=== PATIENT | female | born 1975 | race Caucasian/White ===

== ENCOUNTER 2017-03-05 10:02 | Emergency (ER) | payer MEDICAID ==
[2017-03-05] VITALS (9 sets, daily range): BP systolic 78–92; BP diastolic 48–55; PULSE 64–78; RESP 16–20; TEMP 97.5; O2SAT 98–100
[~2017-03-05] VITALS: Ht 160 cm; Wt 54.5 kg
[2017-03-05 10:23] LABS: AUTOMATED NEUTROPHIL # 2.7 TH/MM3 (1.8-7.7); BASOPHIL % 0.6 % (0.0-2.0); EOSINOPHIL # 0.1 TH/MM3 (0-0.4); EOSINOPHIL % 1.5 % (0.0-4.0); HEMATOCRIT 34.6 % (35.0-46.0); HEMO FLAGS DIFF FINAL; LYMPH % 28.7 % (9.0-44.0); LYMPHOCYTE # 1.2 TH/MM3 (1.0-4.8); MEAN CELL VOLUME 89.1 FL (80.0-100.0); MEAN CORPUSCULAR HEMOGLOBIN 29.5 PG (27.0-34.0); MEAN CORPUSCULAR HGB CONC 33.1 % (32.0-36.0); MONO % 6.8 % (0.0-8.0); NEUT % 62.4 % (16.0-70.0); PLATELET COUNT 170 TH/MM3 (150-450); RED BLOOD COUNT 3.89 MIL/MM3 (4.00-5.30); RED CELL DISTRIBUTION WIDTH 12.7 % (11.6-17.2); WHITE BLOOD COUNT 4.3 TH/MM3 (4.0-11.0)
[2017-03-05 10:33] LABS: CHLORIDE 108 MEQ/L (98-107); SODIUM (NA) 143 MEQ/L (136-145)
[2017-03-05 10:38] LABS: ANION GAP 7 MEQ/L (5-15); BICARBONATE 28.4 MEQ/L (21.0-32.0); BLOOD UREA NITROGEN 11 MG/DL (7-18)
[2017-03-05 10:41] LABS: ALT (GPT) 18 U/L (10-53); AST (GOT) 13 U/L (15-37); GLOMERULAR FILTRATION RATE 113 ML/MIN (>89)
[2017-03-05 10:42] LABS: TOTAL BILIRUBIN ADULT 0.3 MG/DL (0.2-1.0)
[2017-03-05 10:44] LABS: ALKALINE PHOSPHATASE 34 U/L (45-117)
[2017-03-05] MEDS ORDERED: SODIUM CHLOR 0.9% 1000 ML INJ 1,000 ML IV ONE ×3 (10:45→12:45)
[2017-03-05 11:14] LABS: BLOOD, URINE NEG (NEG); GLUCOSE,URINE NEG (NEG); KETONE, URINE NEG (NEG); NITRITE,URINE NEG (NEG); PH, URINE 6.5 (5.0-8.5)
[2017-03-05 11:22] LABS: BARBITURATES, URINE NEG (NEG)
[2017-03-05 11:23] LABS: AMPHETAMINE, URINE NEG (NEG); COCAINE, URINE NEG (NEG)
[2017-03-05 11:28] LABS: METHOD OF COLLECTION CLEAN CATCH; RBC, URINE 0-3 /hpf (0-3); URINE COLOR YELLOW (YELLW/STRAW)
[2017-03-05 11:29] LABS: BACTERIA, URINE MOD /hpf; COMMENT (UR) CULTURE INDICATED; CULTURE IF INDICATED CULTURE INDICATED; SQUAMOUS EPITHELIAL CELL URINE > 8 /hpf (0-5)
--- NOTE | 2017-03-05 11:59 | PD ---
HPI Chief Complaint: Syncope/Near-Syncope Time Seen by Provider: 10:32 Travel History International Travel<30 days: No Contact w/Intl Traveler<30days: No Traveled to known affect area: No History of Present Illness HPI Patient is a 41-year-old female with no medical history, presents to emergency room after a syncopal episode. Reports that she was having a bowel movement today, reports that she began to feel lightheaded and dizzy and her children had her mother go to the bathroom. Reports that when her mother arrived in the bathroom and helped her to the floor. Reports that she had a near syncopal episode. Reports that she did become diaphoretic when this happened. Reports that she has had similar symptoms in the past, reports that she recently moved from [place] to [place] and knows that she is dehydrated as she is having a hard time keeping up with her fluid intake. Patient denies any chest pain or shortness of breath, denies any abdominal pain. Denies any headache or dizziness at this time. Patient with no fevers or chills. Patient does admit to having similar symptoms 4 years ago which was due to vasovagal syncope. PFSH Past Medical History Medical other: Yes (hx of synope approx 4 yrs ago) Tetanus Vaccination: < 5 Years Influenza Vaccination: No ?: Not LMP: 02/15/17 Past Surgical History Section: Yes (x1) Other Surgery: Yes (breast augmentation) Social History Alcohol Use: No Tobacco Use: No (quit smoked cigs for 2-3 years in teen years) Substance Use: No Allergies-Medications (Allergen,Severity, Reaction): Coded Allergies: Bactrim (Verified Allergy, Intermediate, hives, 03/05/17) Penicillin (Verified Allergy, Intermediate, hives, 03/05/17) Review of Systems General / Constitutional: No: Fever Eyes: No: Visual changes HENT: No: Headaches Cardiovascular: Positive: Diaphoresis, Syncope, No: Chest Pain or Discomfort Respiratory: No: Shortness of Breath Gastrointestinal: No: Abdominal Pain Genitourinary: No: Dysuria Musculoskeletal: No: Pain Skin: No Rash Neurologic: No: Weakness Psychiatric: No: Depression Endocrine: No: Polydipsia Hematologic/Lymphatic: No: Easy Bruising Physical Exam Narrative GENERAL: Mild distress SKIN: Focused skin assessment warm/dry. HEAD: Atraumatic. Normocephalic. EYES: Pupils equal and round. No scleral icterus. No injection or drainage. ENT: No nasal bleeding or discharge. Mucous membranes pink and moist. NECK: Trachea midline. No JVD. CARDIOVASCULAR: Regular rate and rhythm. No murmur appreciated. RESPIRATORY: No accessory muscle use. Clear to auscultation. Breath sounds equal bilaterally. GASTROINTESTINAL: Abdomen soft, non-tender, nondistended. Hepatic and splenic margins not palpable. MUSCULOSKELETAL: No obvious deformities. No clubbing. No cyanosis. No edema. NEUROLOGICAL: Awake and alert. No obvious cranial nerve deficits. Motor grossly within normal limits. Normal speech. PSYCHIATRIC: Appropriate mood and affect; insight and judgment normal. Data Data Last Documented VS Vital Signs Date Time Temp Pulse Resp B/P Pulse Ox O2 Delivery O2 Flow Rate FiO2 03/05/17 14:51 78 20 90/55 98 03/05/17 13:57 Room Air 03/05/17 10:23 97.5 Orders Electrocardiogram (03/05/17 10:06) Complete Blood Count With Diff (03/05/17 10:06) Comprehensive Metabolic Panel (03/05/17 10:06) Iv Access Insert/Monitor (03/05/17 10:06) Ed Urine Pregnancytest Poc (03/05/17 10:06) Orthostatic Vital Signs (03/05/17 10:14) Urinalysis - C+S If Indicated (03/05/17 10:14) Drug Screen, Random Urine (03/05/17 10:14) Electrocardiogram (03/05/17 ) Sodium Chlor 0.9% 1000 Ml Inj (Ns 1000 M (03/05/17 10:45) Sodium Chlor 0.9% 1000 Ml Inj (Ns 1000 M (03/05/17 10:45) Urine Culture (03/05/17 11:00) Nitrofurantoin Monohyd Macrocr (Macrobid (03/05/17 12:00) Sodium Chlor 0.9% 1000 Ml Inj (Ns 1000 M (03/05/17 12:45) Ciprofloxacin Liq (Cipro Liq) (03/05/17 12:45) Ct Brain W/O Iv Contrast(Rout) (03/05/17 14:02) Labs Laboratory Tests Test 03/05/17 03/05/17 10:15 11:00 White Blood Count 4.3 TH/MM3 Red Blood Count 3.89 MIL/MM3 Hemoglobin 11.5 GM/DL Hematocrit 34.6 % Mean Corpuscular Volume 89.1 FL Mean Corpuscular Hemoglobin 29.5 PG Mean Corpuscular Hemoglobin 33.1 % Concent Red Cell Distribution Width 12.7 % Platelet Count 170 TH/MM3 Mean Platelet Volume 9.2 FL Neutrophils (%) (Auto) 62.4 % Lymphocytes (%) (Auto) 28.7 % Monocytes (%) (Auto) 6.8 % Eosinophils (%) (Auto) 1.5 % Basophils (%) (Auto) 0.6 % Neutrophils # (Auto) 2.7 TH/MM3 Lymphocytes # (Auto) 1.2 TH/MM3 Monocytes # (Auto) 0.3 TH/MM3 Eosinophils # (Auto) 0.1 TH/MM3 Basophils # (Auto) 0.0 TH/MM3 CBC Comment DIFF FINAL Differential Comment Sodium Level 143 MEQ/L Potassium Level 4.0 MEQ/L Chloride Level 108 MEQ/L Carbon Dioxide Level 28.4 MEQ/L Anion Gap 7 MEQ/L Blood Urea Nitrogen 11 MG/DL Creatinine 0.59 MG/DL Estimat Glomerular Filtration 113 ML/MIN Rate Random Glucose 100 MG/DL Calcium Level 7.7 MG/DL Total Bilirubin 0.3 MG/DL Aspartate Amino Transf 13 U/L (AST/SGOT) Alanine Aminotransferase 18 U/L (ALT/SGPT) Alkaline Phosphatase 34 U/L Total Protein 6.2 GM/DL Albumin 3.3 GM/DL Urine Collection Type CLEAN CATCH Urine Color YELLOW Urine Turbidity CLEAR Urine pH 6.5 Urine Specific [place] 1.022 Urine Protein TRACE mg/dL Urine Glucose (UA) NEG mg/dL Urine Ketones NEG mg/dL Urine Occult Blood NEG Urine Nitrite NEG Urine Bilirubin NEG Urine Leukocyte Esterase NEG Urine RBC 0-3 /hpf Urine WBC 3-5 /hpf Urine Squamous Epithelial > 8 /hpf Cells Urine Bacteria MOD /hpf Microscopic Urinalysis Comment CULTURE INDICATED Urine Collection Time 11:00 Urine Opiates Screen NEG Urine Barbiturates Screen NEG Urine Amphetamines Screen NEG Urine Benzodiazepines Screen NEG Urine Cocaine Screen NEG Urine Cannabinoids Screen NEG MDM Medical Decision Making Medical Screen Exam Complete: Yes Emergency Medical Condition: Yes Interpretation(s) EKG at 10:15: NSR at 61bpm, qt/qtc: 472/473, t wave inversion V1-V3 Vital Signs Date Time Temp Pulse Resp B/P Pulse Ox O2 Delivery O2 Flow Rate FiO2 03/05/17 11:32 67 16 85/50 99 Room Air 03/05/17 11:10 78 16 78/49 73 16 85/54 74 16 92/54 03/05/17 10:27 65 16 100 Room Air 03/05/17 10:23 97.5 65 16 82/55 100 Laboratory Tests Test 03/05/17 03/05/17 10:15 11:00 White Blood Count 4.3 TH/MM3 (4.0-11.0) Red Blood Count 3.89 MIL/MM3 (4.00-5.30) Hemoglobin 11.5 GM/DL (11.6-15.3) Hematocrit 34.6 % (35.0-46.0) Mean Corpuscular Volume 89.1 FL (80.0-100.0) Mean Corpuscular Hemoglobin 29.5 PG (27.0-34.0) Mean Corpuscular Hemoglobin 33.1 % Concent (32.0-36.0) Red Cell Distribution Width 12.7 % (11.6-17.2) Platelet Count 170 TH/MM3 (150-450) Mean Platelet Volume 9.2 FL (7.0-11.0) Neutrophils (%) (Auto) 62.4 % (16.0-70.0) Lymphocytes (%) (Auto) 28.7 % (9.0-44.0) Monocytes (%) (Auto) 6.8 % (0.0-8.0) Eosinophils (%) (Auto) 1.5 % (0.0-4.0) Basophils (%) (Auto) 0.6 % (0.0-2.0) Neutrophils # (Auto) 2.7 TH/MM3 (1.8-7.7) Lymphocytes # (Auto) 1.2 TH/MM3 (1.0-4.8) Monocytes # (Auto) 0.3 TH/MM3 (0-0.9) Eosinophils # (Auto) 0.1 TH/MM3 (0-0.4) Basophils # (Auto) 0.0 TH/MM3 (0-0.2) CBC Comment DIFF FINAL Differential Comment Sodium Level 143 MEQ/L (136-145) Potassium Level 4.0 MEQ/L (3.5-5.1) Chloride Level 108 MEQ/L (98-107) Carbon Dioxide Level 28.4 MEQ/L (21.0-32.0) Anion Gap 7 MEQ/L (5-15) Blood Urea Nitrogen 11 MG/DL (7-18) Creatinine 0.59 MG/DL (0.50-1.00) Estimat Glomerular Filtration 113 ML/MIN Rate (>89) Random Glucose 100 MG/DL (74-106) Calcium Level 7.7 MG/DL (8.5-10.1) Total Bilirubin 0.3 MG/DL (0.2-1.0) Aspartate Amino Transf 13 U/L (15-37) (AST/SGOT) Alanine Aminotransferase 18 U/L (10-53) (ALT/SGPT) Alkaline Phosphatase 34 U/L (45-117) Total Protein 6.2 GM/DL (6.4-8.2) Albumin 3.3 GM/DL (3.4-5.0) Urine Collection Type CLEAN CATCH Urine Color YELLOW (YELLW/STRAW) Urine Turbidity CLEAR (CLEAR) Urine pH 6.5 (5.0-8.5) Urine Specific [place] 1.022 (1.002-1.035) Urine Protein TRACE mg/dL (NEG-TRACE) Urine Glucose (UA) NEG mg/dL (NEG) Urine Ketones NEG mg/dL (NEG) Urine Occult Blood NEG (NEG) Urine Nitrite NEG (NEG) Urine Bilirubin NEG (NEG) Urine Leukocyte Esterase NEG (NEG) Urine RBC 0-3 /hpf (0-3) Urine WBC 3-5 /hpf (0-5) Urine Squamous Epithelial > 8 /hpf (0-5) Cells Urine Bacteria MOD /hpf (NONE) Microscopic Urinalysis Comment CULTURE INDICATED Urine Collection Time 11:00 Urine Opiates Screen NEG (NEG) Urine Barbiturates Screen NEG (NEG) Urine Amphetamines Screen NEG (NEG) Urine Benzodiazepines Screen NEG (NEG) Urine Cocaine Screen NEG (NEG) Urine Cannabinoids Screen NEG (NEG) Differential Diagnosis Vasovagal syncope, dehydration, electrolyte abnormality Narrative Course Patient is a 41-year-old female who presents to emergency room with near syncope after she had a BM today. Reports that she all of a sudden became light headed and diaphoretic and felt as if she was going to pass out. Her mother laid her to the ground - no trauma to head/ neck. Patient was placed on a earth observations chief scientist upon arrival to the emergency room. Lab work including UA ordered. Patient was given 1 L of normal saline by EMS, will give another bolus of fluid to patient and monitor her. Vital Signs Date Time Temp Pulse Resp B/P Pulse Ox O2 Delivery O2 Flow Rate FiO2 03/05/17 14:51 78 20 90/55 98 03/05/17 13:57 75 16 87/51 98 Room Air 03/05/17 13:34 68 16 87/54 03/05/17 13:26 70 16 99 Room Air 03/05/17 12:57 73 16 91/48 03/05/17 12:30 64 16 83/54 99 Room Air 03/05/17 11:54 63 16 98 Room Air 03/05/17 11:32 67 16 85/50 99 Room Air 03/05/17 11:10 78 16 78/49 73 16 85/54 74 16 92/54 03/05/17 10:27 65 16 100 Room Air 03/05/17 10:23 97.5 65 16 82/55 [address] 03/05/17 1402 Signed Impressions: Service Date/Time: Friday, March 05, 2017 14:09 - CONCLUSION: 1. No acute intracranial abnormality. Tyler Downey MD Laboratory Tests Test 03/05/17 03/05/17 10:15 11:00 White Blood Count 4.3 TH/MM3 (4.0-11.0) Red Blood Count 3.89 MIL/MM3 (4.00-5.30) Hemoglobin 11.5 GM/DL (11.6-15.3) Hematocrit 34.6 % (35.0-46.0) Mean Corpuscular Volume 89.1 FL (80.0-100.0) Mean Corpuscular Hemoglobin 29.5 PG (27.0-34.0) Mean Corpuscular Hemoglobin 33.1 % Concent (32.0-36.0) Red Cell Distribution Width 12.7 % (11.6-17.2) Platelet Count 170 TH/MM3 (150-450) Mean Platelet Volume 9.2 FL (7.0-11.0) Neutrophils (%) (Auto) 62.4 % (16.0-70.0) Lymphocytes (%) (Auto) 28.7 % (9.0-44.0) Monocytes (%) (Auto) 6.8 % (0.0-8.0) Eosinophils (%) (Auto) 1.5 % (0.0-4.0) Basophils (%) (Auto) 0.6 % (0.0-2.0) Neutrophils # (Auto) 2.7 TH/MM3 (1.8-7.7) Lymphocytes # (Auto) 1.2 TH/MM3 (1.0-4.8) Monocytes # (Auto) 0.3 TH/MM3 (0-0.9) Eosinophils # (Auto) 0.1 TH/MM3 (0-0.4) Basophils # (Auto) 0.0 TH/MM3 (0-0.2) CBC Comment DIFF FINAL Differential Comment Sodium Level 143 MEQ/L (136-145) Potassium Level 4.0 MEQ/L (3.5-5.1) Chloride Level 108 MEQ/L (98-107) Carbon Dioxide Level 28.4 MEQ/L (21.0-32.0) Anion Gap 7 MEQ/L (5-15) Blood Urea Nitrogen 11 MG/DL (7-18) Creatinine 0.59 MG/DL (0.50-1.00) Estimat Glomerular Filtration 113 ML/MIN Rate (>89) Random Glucose 100 MG/DL (74-106) Calcium Level 7.7 MG/DL (8.5-10.1) Total Bilirubin 0.3 MG/DL (0.2-1.0) Aspartate Amino Transf 13 U/L (15-37) (AST/SGOT) Alanine Aminotransferase 18 U/L (10-53) (ALT/SGPT) Alkaline Phosphatase 34 U/L (45-117) Total Protein 6.2 GM/DL (6.4-8.2) Albumin 3.3 GM/DL (3.4-5.0) Urine Collection Type CLEAN CATCH Urine Color YELLOW (YELLW/STRAW) Urine Turbidity CLEAR (CLEAR) Urine pH 6.5 (5.0-8.5) Urine Specific [place] 1.022 (1.002-1.035) Urine Protein TRACE mg/dL (NEG-TRACE) Urine Glucose (UA) NEG mg/dL (NEG) Urine Ketones NEG mg/dL (NEG) Urine Occult Blood NEG (NEG) Urine Nitrite NEG (NEG) Urine Bilirubin NEG (NEG) Urine Leukocyte Esterase NEG (NEG) Urine RBC 0-3 /hpf (0-3) Urine WBC 3-5 /hpf (0-5) Urine Squamous Epithelial > 8 /hpf (0-5) Cells Urine Bacteria MOD /hpf (NONE) Microscopic Urinalysis Comment CULTURE INDICATED Urine Collection Time 11:00 Urine Opiates Screen NEG (NEG) Urine Barbiturates Screen NEG (NEG) Urine Amphetamines Screen NEG (NEG) Urine Benzodiazepines Screen NEG (NEG) Urine Cocaine Screen NEG (NEG) Urine Cannabinoids Screen NEG (NEG) Patient reevaluated, patient is feeling much better this time. Laughing and smiling and playing with her children, blood pressure now 90/55, reports that she is always hypotensive and sometimes her blood pressure goes down to the SBP in the 60's. Patient reports that she feels 100% better at this time, patient' s symptoms most likely from vasovagal syncope. Signs and symptoms of when to return to the emergency room was reviewed with patient in detail. She will follow-up with her primary care doctor and will return to emergency room as needed. Diagnosis Primary Impression: Vaso vagal episode Additional Impression: Hypotension Patient Instructions: General Instructions Additional Instructions: Please follow up with your primary care doctor in 1-2 days Return to ER if symptoms worsen or progress or return Please drink plenty of fluids Disposition: 01 DISCHARGE HOME Condition: Stable Sera Henley DO Mar 05, 2017 11:59
[2017-03-05] MEDS: NITROFURANTOIN MONOHYD MACROCR 100 MG CAP PO ONE ×2 (12:00→12:31)
[2017-03-05] MEDS ORDERED: CIPROFLOXACIN SUSP 500 MG/5 ML 100 ML BOTTLE PO ONE (12:45)
--- NOTE | 2017-03-05 14:53 | RADHPO ---
EXAM DATE/TIME: 03/05/2017 14:09 [facility] COMPARISON: No previous studies available for comparison. INDICATIONS : Syncopal episode. Altered mental status. RADIATION DOSE: 66.63 CTDIvol (mGy) MEDICAL HISTORY : None SURGICAL HISTORY : section. ENCOUNTER: Initial ACUITY: 1 day PAIN SCALE: 0/10 LOCATION: cranial TECHNIQUE: Multiple contiguous axial images were obtained of the head. Using automated exposure control and adj ustment of the mA and/or kV according to patient size, radiation dose was kept as low as reasonably a chievable to obtain optimal diagnostic quality images. FINDINGS: CEREBRUM: The ventricles are normal for age. No evidence of midline shift, mass lesion, hemorrhage or acute in farction. No extra-axial fluid collections are seen. POSTERIOR FOSSA: The cerebellum and brainstem are intact. The 4th ventricle is midline. The cerebellopontine angle i s unremarkable. EXTRACRANIAL: The visualized portion of the orbits is intact. SKULL: The calvaria is intact. No evidence of skull fracture. CONCLUSION: 1. No acute intracranial abnormality. Tyler Downey MD on March 05, 2017 at 14:49 Board Certified Radiologist. This report was verified electronically.
--- NOTE | 2017-03-06 14:01 | EKG ---
Date Performed: 03/05/2017 Time Performed: 10:15:44 PTAGE: 41 years EKG: Sinus rhythm Prolonged QT interval Anteroseptal T wave changes are abnormal Low QRS voltages in limb leads Abnorm al ECG NO PREVIOUS TRACING DOCTOR: Issac Chen Interpretating Date/Time 03/06/2017 13:56:49
== END 2017-03-05 15:30 | disposition home or self-care (01) ==
LOC: PHED 10:02
DX: R55 Syncope and collapse (principal); I95.9 Hypotension, unspecified; R82.71 Bacteriuria; Z87.891 Personal history of nicotine dependence
CPT/HCPCS: 70450; 80053; 80307; 81001; 84703; 85025; 87086; 93005; 96360; 96361; 99285; J7030